=== PATIENT | female | born 1960 | race Caucasian/White ===

== ENCOUNTER → 2021-07-08 17:00 | Outpatient (CLI) | payer OTHER, SELFPAY ==
--- NOTE | ~2021-07-08 | MM_ITS ---
EXAMINATION: MM screening daniel BI w daniele HISTORY: Screening mammogram TECHNIQUE: Craniocaudal and mediolateral oblique 3-D tomosynthesis images were obtained and synthetic 2-D images were generated. CAD analysis was submitted and interpreted. COMPARISON: No prior mammogram is available for comparison at this institution. BREAST PARENCHYMAL COMPOSITION: The breasts are almost entirely fatty. FINDINGS: There is a biopsy marker on the left; history of benign left breast biopsy 20 years ago. Th ere are multiple 7 mm or smaller masses in the left breast including multiple opacities in the supervisor coke handling ior upper outer quadrant and one in the posterior lower inner quadrant. A 7 mm opacity in the posterior upper outer quadrant as mildly irregular margins. Comparison with gela or mammogram examinations is recommended, preferably dating back at least 2 years; if these are not a vailable or if there has been significant change, then diagnostic left mammogram and left breast ultr asound examination are recommended. Circumscribed 6 mm opacity is noted in the posterior upper right breast on MLO view, likely a benign lymph node. Comparison with prior mammogram examinations is recommended. IMPRESSION: 1. Bilateral breast masses 2. Comparison with prior mammogram examinations is recommended. If no prior examinations are availabl e or if there has been significant change, then diagnostic mammography and ultrasound of one or both breasts as appropriate would be recommended BI-RADS Category 0: Incomplete: Needs additional imaging evaluation. Reviewed, dictated and finalized at location A. IMPRESSION: 1. Bilateral breast masses 2. Comparison with prior mammogram examinations is recommended. If no prior exa minations are available or if there has been significant change, then diagnosti c mammography and ultrasound of one or both breasts as appropriate would be rec ommended BI-RADS Category 0: Incomplete: Needs additional imaging evaluation.
--- NOTE | ~2021-07-08 | DEXA_ITS ---
Bone Density Report Name: Eneida Coleman Age: 61 Sex: Female Ethnicity: White Date of : 1960 Indication: postmenopausal; screening for osteoporosis; parental hip fracture; prior fracture; asthma or emphysema; Referring Provider: OTILIO COLLADO Study: Bone densitometry was performed. Exam Date: July 08, 2021 Accession number: [id number] Bone Density: Region BMD T-score Z-score Classification AP Spine (L3, L4) 1.274 1.6 3.0 Normal World Health Organization criteria for BMD impression classify patients as: Normal (T-score at or above -1.0), Osteopenia (T-score between -1.0 and -2.5), or Osteoporosis (T-score at or below -2.5). Previous Exams: Region Exam Age BMD T-score BMD Change BMD Change Date g/cm2 vs Baseline vs Previous AP Spine(L3, L4) 07/08/2021 61 1.274 1.6 0.009 0.009 10/31/2015 55 1.265 1.5 *Denotes significance at 95% confidence level, LSC for AP Spine = 0.022 g/cm2 Clinical Information Provided by Patient: Have had a previous hip or vertebral fracture Has had a low trauma fracture Parent has had a hip fracture Has used the following medications: Vitamin D, MTV Has the following medical conditions: Asthma or Emphysema Patient maximum height was 64.0 Menopause Age: 47 No regular weight bearing exercise Drinks caffeinated beverages Onset of menses at age 14 Number of children 1 Impression: The patient has normal bone mass. The patient has risk factors, including: parental hip fracture, previous fracture. No significant bone loss was observed. Discussion: INCREASED RISK OF FRACTURE DUE TO HISTORY OF FRACTURE. The patient's previous fracture puts the patient at high risk of a future fracture. In untreated patients, the risk of osteoporotic fracture increases approximately two-fold for each 1.0 SD decrease in T-score. Low bone density is not the only risk factor for fracture; also consider factors such as patient's age, frailty or poor health, risk of falling, risk of injury, previous osteoporotic fracture, family history of osteoporosis, cigarette smoking, low body weight, etc. Not everyone with a low trauma fracture has osteoporosis; osteomalacia and other metabolic bone disorders should also be considered. Patients who have osteoporosis should be evaluated for specific diseases and conditions (secondary causes) that may cause or contribute to bone loss and fracture risk. National Osteoporosis Foundation (NOF) recommends pharmacologic intervention for patients with a prior hip or vertebral fracture regardless of BMD T-score. The patient should follow a healthful lifestyle (good nutrition with adequate calcium and vitamin D, and appropriate weight-bearing exercise). Follow-Up: Consider a repeat BMD and V
== END ==
PROVIDERS: PCP Family Medicine; Visit Provider Family Medicine
DX: Z12.31 Encounter for screening mammogram for malignant neoplasm of breast (principal); Z78.0 Asymptomatic menopausal state; R91.8 Other nonspecific abnormal finding of lung field
CPT/HCPCS: 77063; 77067; 77080

== ENCOUNTER → 2021-08-19 09:13 | Outpatient (CLI) | payer OTHER, SELFPAY ==
--- NOTE | ~2021-08-19 | MMUS_ITS ---
EXAMINATION: MM diagnostic daniel LT w daniele, US breast LT limited HISTORY: 07/08/2021 screening mammogram examination TECHNIQUE: Additional 3-D tomosynthesis images of left breast were performed and synthetic 2-D images were generated. CAD analysis was submitted and interpreted. High resolution upper outer and lower in ner left breast ultrasound was performed. COMPARISON: 07/08/2021 bilateral screening mammogram FINDINGS: MAMMOGRAPHIC FINDINGS: Approximately 4 x 6.7 mm mass is noted in the lower inner quadrant of the left breast at posterior de pth. Approximately 7.2 x 8 mm circumscribed irregular mass is noted in the posterior upper outer left [address]. ULTRASOUND: 8:00 7 cm from nipple: 4.5 x 7 mm circumscribed complicated septated cyst without internal vascularit y or posterior shadowing, likely benign 2:00 7 cm from nipple: 3.7 x 2.4 x 2.9 mm circumscribed hypoechoic lesion with central hyperechoic ar ea suggesting small lymph node 2:00 6 cm from nipple: Antiparallel 6.2 x 7.4 mm hypoechoic mass with irregular slightly spiculated m argins, adjacent vascularity on color flow imaging. This lesion is suspicious. Ultrasound-guided biop sy is recommended. IMPRESSION: 1. Suspicious solid 6.2 x 7.4 mm mass of left breast at 2:00 6 cm from nipple: 2. Ultrasound-guided biopsy of left breast 2:00 lesion is recommended BI-RADS category 4, suspicious findings. Dr. Zhu telephoned the report and ultrasound guided biopsy recommendation on 08/19/2021 at 1005 hour s to Malika Terrell. Reviewed, dictated and finalized at location A. RUCTIONAL TECHNOLOGY COACH IMPRESSION: 1. Suspicious solid 6.2 x 7.4 mm mass of left breast at 2:00 6 cm from nipple: 2. Ultrasound-guided biopsy of left breast 2:00 lesion is recommended BI-RADS category [address], [address] Zhu telephoned the report and ultrasound guided biopsy recommendation on 10/19/2020 at 1005 hours to Malika Terrell.
== END ==
PROVIDERS: PCP Family Medicine; Visit Provider Physician Assistant
DX: R92.8 Other abnormal and inconclusive findings on diagnostic imaging of breast (principal)
CPT/HCPCS: 76642; 77061; 77065; G0279